=== PATIENT | female | born 1995 ===

== ENCOUNTER 2018-11-14 07:15 | Inpatient (IN) | payer OTHER ==
[~2018-11-14] VITALS: Ht 152.4 cm; Wt 70.3 kg
[2018-11-16] MEDS ORDERED: NAPR500T14 PO (09:39)
== END 2018-11-16 12:44 | DRG 807 ==
LOC: OB/GYN 07:15 → LDR 07:15 → OB/GYN 11-15 00:07
PROVIDERS: ADMIT Obstetrics & Gynecology
PROC: 10E0XZZ Delivery of Products of Conception, External Approach (ICD-10-PCS; principal; 2018-11-14)
PROC: 0KQM0ZZ Repair Perineum Muscle, Open Approach (ICD-10-PCS; 2018-11-14)
PROC: 4A1HXCZ Monitoring of Products of Conception, Cardiac Rate, External Approach (ICD-10-PCS; 2018-11-14)
PROC: 4A033R1 Measurement of Arterial Saturation, Peripheral, Percutaneous Approach (ICD-10-PCS; 2018-11-14)
DX: O70.1 Second degree perineal laceration during delivery (principal); Z37.0 Single live birth; Z3A.39 39 weeks gestation of pregnancy

== ENCOUNTER 2022-03-02 13:10 | Outpatient (CLI) | payer OTHER ==
[~2022-03-02 13:10] MED LIST: NAPR500T14 PO
== END 2022-03-02 14:20 | disposition home or self-care (01) ==
LOC: PRENATAL 13:10
PROVIDERS: ATTEND Obstetrics & Gynecology Maternal & Fetal Medicine
DX: O35.0XX0 Maternal care for (suspected) central nervous system malformation in fetus, not applicable or unspecified (principal); Z3A.22 22 weeks gestation of pregnancy; O35.3XX0 Maternal care for (suspected) damage to fetus from viral disease in mother, not applicable or unspecified

== ENCOUNTER 2022-05-31 08:30 | Outpatient (CLI) | payer OTHER | END 2022-05-31 09:40 | disposition home or self-care (01) | LOC: PRENATAL 08:30 | PROVIDERS: ATTEND Obstetrics & Gynecology Maternal & Fetal Medicine | DX: O26.849 Uterine size-date discrepancy, unspecified trimester (principal); O36.8199 Decreased fetal movements, unspecified trimester, other fetus; Z3A.35 35 weeks gestation of pregnancy ==

== ENCOUNTER 2022-06-29 06:13 | Inpatient (IN) | payer OTHER ==
[~2022-06-29] VITALS: Ht 152.4 cm; Wt 76.2 kg
[2022-06-29] MEDS ORDERED: PRENATAL 19 CH1 EACH PO (10:39)
[2022-07-01] MEDS ORDERED: NAPR500T14 PO (08:46)
== END 2022-07-01 13:54 | disposition home or self-care (01) | DRG 807 ==
LOC: OB/GYN 06:13 → LDR 06:13 → OB/GYN 20:09
PROVIDERS: ADMIT Student in an Organized Health Care Education/Training Program; ATTEND Student in an Organized Health Care Education/Training Program
PROC: 10E0XZZ Delivery of Products of Conception, External Approach (ICD-10-PCS; principal; 2022-06-29)
PROC: 0KQM0ZZ Repair Perineum Muscle, Open Approach (ICD-10-PCS; 2022-06-29)
PROC: 4A1HXCZ Monitoring of Products of Conception, Cardiac Rate, External Approach (ICD-10-PCS; 2022-06-29)
DX: O70.1 Second degree perineal laceration during delivery (principal); Z37.0 Single live birth; Z3A.39 39 weeks gestation of pregnancy; Z20.822 Contact with and (suspected) exposure to COVID-19